=== PATIENT | male | born 1970 | race Caucasian/White ===

== ENCOUNTER 2017-09-28 18:06 | Inpatient (IN) | payer MEDICAID ==
[~2017-09-28] VITALS: Ht 175.3 cm; Wt 86.9 kg
--- NOTE | ~2017-09-28 | OP ---
PATIENT NAME: KAN CARRENO MEDICAL RECORD: [id number] :68 LOCATION:D.M2 D.2103 ADMISSION DATE:09/28/17 SURGEON: KRISTIE VILLANUEVA MD DATE OF OPERATION: 09/30/2017 PREOPERATIVE DIAGNOSIS: 1. Split divergent Lisfranc injury of the left foot with dislocations of the lesser metatarsals and subluxation of the first metatarsal. 2. Medial malleolus fracture. 3. Syndesmosis injury. PROCEDURES: 1. Lisfranc repair. 2. Closed reduction and pinning of metatarsals, 3 and 5 to hold the lateral column in place. 3. ORIF of the medial malleolus. 4. Syndesmosis repair. SURGEON: Kristie Villanueva MD ANESTHESIA: General. INTRAOPERATIVE COMPLICATIONS: None. SUMMARY OF PATHOLOGIC FINDINGS: Consistent with preoperative diagnosis, the patient had a split divergent Lisfranc fracture. Also consistent with the radiographs, the patient's medial cuneiform appeared to be in excellent overall condition. The intermediate and lateral cuneiform showed to have fracture fragmentation. These were used along with the cuboid to stabilize the lesser metatarsals although they had reduced into place nicely. The medial malleolar fragment was quite large in 1 piece, easily reduced, and fixed with cannulated screws. The syndesmosis injury showed up on the CT scan and was able to be widened at the time of fluoroscopic evaluation in the OR, so this was fixed with a syndesmosis TightRope as was Lisfranc's ligament. OPERATIVE SUMMARY IN DETAIL: After obtaining the appropriate preoperative orthopedic surgery consent as well as anesthetic consultation, evaluation, and clearance, the patient was brought to the operating room and placed on the operating table in supine position. After general laryngeal mask was administered, tourniquet was placed about the proximal aspect of the right lower extremity. Right lower extremity was then prepped and draped in routine sterile fashion. The leg was elevated and exsanguinated, tourniquet inflated to 350 mmHg. Attention was first turned to reduction of the lesser metatarsals. They did not reduce without incision. A small incision was made over the second metatarsal and with some joint evacuation, the second came pulling the 3rd, 4th, and 5th with it. At this point, the Lisfranc TightRope from [employer] was utilized, it was placed in the second metatarsal head and into the cuboid. This was done under fluoroscopic guidance. The TightRope was deployed and it did firmly decrease the second metatarsal and first metatarsal interspace and the residual of the lesser heads were perfectly reduced at this point. This maneuver also reduced the subluxation of the first MTP joint. Having completed this, K-wires were placed in the fifth and third and second metatarsal, the fourth metatarsal base was in good position, held firmly in place, and the lateral most cuneiform had the most fragmentations, so K-wire was not put into that. Next, attention was turned to the medial malleolus. Incision was made on OPERATIVE REPORT [id number] KAN CARRENO the medial ankle, taken down over the fragment to the fracture line itself. Periosteum was removed. This was held in reduction with a bone reduction forceps while two 40 mm cannulated compression screws were placed in the medial malleolus. Having completed this and after testing the syndesmosis, the syndesmosis TightRope guidewire was placed across the fibula into the tibia again under fluoroscopic guidance. It was overdrilled and the TightRope was then deployed while the foot was held in neutral. A large reduction clamp was used to hold the fibula and tibia together while this was terminally tensioned. At this point, final radiographs were taken including AP, lateral, and oblique views of the ankle as well as 3 views of the foot and these were sent to the radiologist for final review. All wounds were irrigated and closed in the usual fashion. Sterile dressings were applied. Tourniquet was deflated. Posterior L&U splint was applied. The patient was awakened, taken to recovery room in stable condition. All final needle and sponge counts were correct. TRANSINT:[id number] Voice Confirmation ID: [id number] DOCUMENT ID: [id number] RICH DUMONT, KRISTIE SUNSHINE at 1427 CC: [id number] DICTATION DATE: 09/30/17 1435 HEAD OF MATHEMATICS: 09/30/17 1518 DIS IN 10/01/17 [id number] [place] [address]
[2017-09-29 02:08] VITALS: Ht 175.3 cm; Wt 86.9 kg
[2017-09-29] MEDS ORDERED: PAXIL20 MG PO (03:58)
[2017-09-29 04:00] VITALS: BP 112/68
[2017-09-29 09:10] VITALS: BP 104/58
[2017-09-29 12:55] VITALS: BP 115/71
[2017-09-29 20:54] VITALS: BP 107/68
[2017-09-30] VITALS (8 sets, daily range): BP systolic 96–125; BP diastolic 55–76
[2017-09-30 07:50] LABS: HEMATOCRIT 39.6 % (42.0-54.0); MCH 29.4 pg (26.0-34.0); MCHC 32.8 g/dL (31.0-37.0); MCV 89.6 fL (80.0-100.0); MEAN PLATELET VOLUME 8.9 fL (7.4-10.4); RBC 4.42 10x6/uL (4.20-6.10); RDW 13.6 % (11.5-14.5); WBC 9.1 10x3/uL (4.8-10.8)
[2017-09-30 08:00] LABS: ANION GAP 10.3 mmol/L (8-16); CALCIUM 8.3 mg/dL (8.5-10.1); CARBON DIOXIDE 28.6 mmol/L (21.0-32.0); CREATININE - SERUM 1.2 mg/dL (0.6-1.3); POTASSIUM - SERUM 3.9 mmol/L (3.5-5.1)
[2017-10-01] VITALS: BP 98/57
[2017-10-01 04:00] VITALS: BP 103/58
[2017-10-01 08:00] VITALS: BP 099/064
[2017-10-01 09:20] VITALS: BP 99/64
[2017-10-01 10:01] VITALS: BP 117/73
[2017-10-01] MEDS ORDERED: DILAUDID4 MG PO (11:10)
[2017-10-01] MEDS ORDERED: ELIQUIS2.5 MG PO (11:11)
[2017-10-01 11:43] VITALS: BP 116/73
== END 2017-10-01 12:20 | disposition home or self-care (01) | DRG 494 ==
LOC: D.ER 18:06 → D.M2 21:05
PROVIDERS: Orthopaedic Surgery
PROC: 0QSP04Z Reposition Left Metatarsal with Internal Fixation Device, Open Approach (ICD-10-PCS; principal; 2017-09-30 10:15)
PROC: 0QSH04Z Reposition Left Tibia with Internal Fixation Device, Open Approach (ICD-10-PCS; 2017-09-30 10:15)
DX: S82.52XA Displaced fracture of medial malleolus of left tibia, initial encounter for closed fracture (principal); X58.XXXA Exposure to other specified factors, initial encounter; S92.332A Displaced fracture of third metatarsal bone, left foot, initial encounter for closed fracture; S92.352A Displaced fracture of fifth metatarsal bone, left foot, initial encounter for closed fracture; Z72.0 Tobacco use